=== PATIENT | female | born 1975 | race Caucasian/White ===

== ENCOUNTER → 2017-04-12 | Outpatient (CLI) | payer OTHER | END | disposition home or self-care (01) | LOC: SLPLAB 18:10 | DX: G47.10 Hypersomnia, unspecified (principal) | CPT/HCPCS: 95810 ==

== ENCOUNTER → 2018-09-14 | Outpatient (CLI) | payer BC, OTHER ==
--- NOTE | 2018-09-14 08:55 | KCIC ---
Ultrasound venous Doppler INDICATION:Six-month follow-up of left DVT. Patient on blood thinner. TECHNIQUE: Grayscale, color Doppler and spectral waveform ultrasound images of the left lower deep veins obtained. COMPARISON: None FINDINGS: Echogenic strands are seen in the popliteal vein with preserved blood flow. The rest of the interrogated deep veins are compressible and demonstrate evidence of blood flow with normal respiratory variation and response to augmentation. IMPRESSION: Partial/nonocclusive DVT in the popliteal vein. Electronically signed by: Bean Shah DO (09/14/2018 8:52 AM) [facility]
== END | disposition home or self-care (01) ==
LOC: KCIC US 08:01
PROVIDERS: ATTEND Family Medicine
DX: I82.432 Acute embolism and thrombosis of left popliteal vein (principal); Z79.01 Long term (current) use of anticoagulants
CPT/HCPCS: 93971